=== PATIENT | female | born 1960 | race Caucasian/White ===

== ENCOUNTER 2016-08-28 20:11 | Inpatient (IN) | payer MEDICAID ==
--- NOTE | 2016-08-29 00:17 | ED PDOC ---
Arrival/HPI <Fransisco Silver - Last Filed: 08/29/16 01:14> - General Historian: Patient <Hermelinda Prince - Last Filed: 08/29/16 03:43> - General Time Seen by Provider: 08/28/16 23:48 - History of Present Illness Narrative History of Present Illness (Text): 08/29/16 00:14 55yo female IVDU present with complaint of left hand swelling/pain x 3days. states symptoms started after injecting herself with heroine. Denies fever, chills, nausea,vomiting, any other complaint. 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 - Anesthesia Hx Anesthesia: Yes Hx Anesthesia Reactions: No Hx Malignant Hyperthermia: No - Suicidal Assessment Feels Threatened In Home Enviroment: No <Hermelinda Prince - Last Filed: 08/29/16 03:43> Family/Social History - Physician Review Nursing Documentation Reviewed: Yes Family/Social History: Unknown Family HX Smoking Status: Heavy Smoker > 10 Cigarettes Daily Hx Alcohol Use: No Hx Substance Use: Yes Substance used: heroin, cocaine, oxycodone Hx Substance Use Treatment: No <Hermelinda Prince - Last Filed: 08/29/16 03:43> Allergies/Home Meds <Fransisco Silver - Last Filed: 08/29/16 01:14> <Hermelinda Prince A - Last Filed: 08/29/16 03:43> Allergies/Adverse Reactions: Allergies No Known Allergies Allergy (Verified 12/24/14 16:22) Home Medications: Home Meds Medication Instructions Recorded Confirmed oxyCODONE [oxyCODONE Immediate 30 mg PO DAILY 11/05/15 11/05/15 Release Tab] Review of Systems - Physician Review All systems were reviewed & negative as marked: Yes - Review of Systems Constitutional: Normal Eyes: Normal ENT: Normal Respiratory: Normal Cardiovascular: Normal Gastrointestinal: Normal Genitourinary Female: Normal Musculoskeletal: Normal Skin: Cellulitis (Left hand) Neurological: Normal Endocrine: Normal Hemo/Lymphatic: Normal Psychiatric: Normal <Hermelinda Prince A - Last Filed: 08/29/16 03:43> Physical Exam Vital Signs Reviewed: Yes Temperature: Afebrile Blood Pressure: Normal Pulse: Regular Respiratory Rate: Normal Appearance: Positive for: Well-Appearing, Non-Toxic, Comfortable Pain Distress: None Mental Status: Positive for: Alert and Oriented X 3 - Systems Exam Head: Present: Atraumatic, Normocephalic Pupils: Present: PERRL Extroacular Muscles: Present: EOMI Conjunctiva: Present: Normal Mouth: Present: Moist Mucous Membranes Neck: Present: Normal Range of Motion Respiratory/Chest: Present: Clear to Auscultation, Good Air Exchange. No: Respiratory Distress, Accessory Muscle Use Cardiovascular: Present: Regular Rate and Rhythm, Normal S1, S2. No: Murmurs Abdomen: Present: Normal Bowel Sounds. No: Tenderness, Distention, Peritoneal Signs Back: Present: Normal Inspection Upper Extremity: Present: Normal Inspection. No: Cyanosis, Edema Lower Extremity: Present: Normal Inspection. No: Edema Neurological: Present: GCS=15, CN II-XII Intact, Speech Normal Skin: Present: Warm, Dry, Normal Color, Erythematous (LEft volar hand), Other ( Promiennt swelling, tenderness and warmth to touch of left volar hand). No: Rashes Psychiatric: Present: Alert, Oriented x 3, Normal Insight, Normal Concentration <NikiHappiness A - Last Filed: 08/29/16 03:43> Vital Signs Temp Pulse Resp BP Pulse Ox 08/29/16 01:13 98.3 F 62 16 102/66 95 Medical Decision Making <Fransisco Silver - Last Filed: 08/29/16 01:14> <Hermelinda Prince A - Last Filed: 08/29/16 03:43> ED Course and Treatment: 08/29/16 03:41 PT is IVDU present with left hand cellulitis. She was admitted for IV abx. IV abx was started in ED EKG Sinus rhythm with short WA. No ST changes @ 60bpm as read by me CXR NAD Case was DW Dr. [place]. He accepted pt into his service. (Hermelinda Prince) - Medication Orders Current Medication Orders: Discontinued Medications Ceftriaxone Sodium (Rocephin 1 Gram Ivpb) 100 mls @ 200 mls/hr IVPB STAT STA PRN Reason: Protocol Stop: 08/29/16 01:11 Last Admin: 08/29/16 01:37 Dose: 200 MLS/HR eMAR Start Stop Document 08/29/16 01:37 FJA (Rec: 08/29/16 01:38 FJA [id number]) Intravenous Solution Start Date 08/29/16 Start Time 01:37 End Date 08/29/16 End time 02:07 Total Infusion Time 30 Vancomycin HCl (Vancomycin 1gm) 250 mls @ 167 mls/hr IVPB STAT STA PRN Reason: Protocol Stop: 08/29/16 02:11 Last Admin: 08/29/16 02:55 Dose: 167 MLS/HR eMAR Start Stop Document 08/29/16 02:55 STOCP (Rec: 08/29/16 02:55 STOCP [id number]) Intravenous Solution Start Date 08/29/16 Start Time 02:55 End Date 08/29/16 End time 04:25 Total Infusion Time 90 - PA / FACTORY CLERK / Resident Statement / has reviewed & agrees with the documentation as recorded. / has examined the patient and agrees with the treatment plan. <Fransisco Silver - Last Filed: 08/29/16 01:14> Disposition/Present on Arrival <Fransisco Silver - Last Filed: 08/29/16 01:14> - Present on Arrival Any Indicators Present on Arrival: No History of DVT/PE: No History of Uncontrolled Diabetes: No Urinary Catheter: No History Surgical Site Infection Following: None - Disposition Have Diagnosis and Disposition been Completed?: Yes Disposition Time: 22:30 <Hermelinda Prince - Last Filed: 08/29/16 03:43> - Disposition Diagnosis: Cellulitis, Drug abuse Disposition: HOSPITALIZED Patient Problems: Current Active Problems Problem Status Diagnosed Cellulitis Acute Condition: FAIR
[2016-08-29] MEDS ORDERED: Vancomycin 1gm in NS 250ml 250 ML IVPB STA (00:42)
[2016-08-29] MEDS ORDERED: cefTRIAXone 1 gm 100 ML IVPB STA (00:42)
[2016-08-29 00:55] LABS: ADD MANUAL DIFF? NO
[2016-08-29 00:58] LABS: EOS # 0.1 (0.0-0.7); EOS % 1.4 % (1.5-5.0); GRAN % 57.9 % (50.0-68.0); HEMATOCRIT 43.3 % (36.0-48.0); LYMPH # 2.1 (1.2-3.4); LYMPH % 32.2 % (22.0-35.0); MEAN CELL VOLUME 90.8 fL (80.0-105.0); MEAN CORPUSCULAR HEMOGLOBIN 30.4 pg (25.0-35.0); MEAN CORPUSCULAR HGB CONC 33.5 g/dl (31.0-37.0); MEAN PLATELET VOLUME 10.4 fl (7.0-11.0); MONO # 0.6 (0.1-0.6); MONO % 8.5 % (1.0-6.0); PLATELET COUNT 180 10^3/uL (120.0-450.0); RED CELL DISTRIBUTION WIDTH 13.9 % (11.5-14.5); WHITE BLOOD COUNT 6.6 10^3/ul (4.5-11.0)
[2016-08-29 01:23] LABS: ALB/GLOB RATIO 0.9 (1.1-1.8); ALKALINE PHOSPHATASE 84 U/L (38-133); ALT/SGPT 15 U/L (7-56); AST/SGOT 34 U/L (15-39); BILIRUBIN,TOTAL 0.7 mg/dL (0.2-1.3); BLOOD UREA NITROGEN 8 mg/dL (7-21); CALCIUM 9.4 mg/dL (8.4-10.5); CARBON DIOXIDE 25 mmol/L (21-33); CHLORIDE 105 mmol/L (98-107); GFR AFRICAN-AMERICAN > 60; GLUCOSE,RANDOM 95 mg/dL (70-110); POTASSIUM 4.4 mmol/L (3.6-5.0); SODIUM 141 mmol/L (132-148); TOTAL PROTEIN 8.8 g/dL (5.8-8.3)
[2016-08-29] MEDS: oxyCODONE 30 mg Immediate Release Tab PO SCH ×3 (10:13→17:27)
[2016-08-29] MEDS: cefTRIAXone 1 gm 100 ML IVPB SCH (10:13)
--- NOTE | 2016-08-29 11:15 | RAD ---
HISTORY: admission COMPARISON: No prior. FINDINGS: LUNGS: Mild hyperinflation of the lungs. PLEURA: Blunting of the costophrenic angle which could be due to pleural thickening. Otherwise no evidence of significant pleural effusion or pneumothorax. CARDIOVASCULAR: Normal. OSSEOUS STRUCTURES: No significant abnormalities. VISUALIZED UPPER ABDOMEN: Normal. OTHER FINDINGS: None. IMPRESSION: Baseline portable study. Hyperinflation of the lungs suspicious for COPD/ emphysema.
[2016-08-29] MEDS: Vancomycin 1gm in NS 250ml 250 ML IVPB SCH (17:15)
--- NOTE | 2016-08-29 18:06 | CARD ---
APPROVED REPORT EKG Measurement Heart [id number] <Conclusion> Sinus rhythm with short NH Otherwise normal ECG
[2016-08-30] MEDS: Vancomycin 1gm in NS 250ml 250 ML IVPB SCH ×2 (04:07→17:58)
[2016-08-30 06:44] LABS: ADD MANUAL DIFF? NO
[2016-08-30 07:13] LABS: BASO # 0.01 K/mm3 (0.0-2.0); BASO % 0.2 % (0.0-3.0); BLOOD UREA NITROGEN 7 mg/dL (7-21); CALCIUM 8.9 mg/dL (8.4-10.5); CARBON DIOXIDE 25 mmol/L (21-33); CHLORIDE 109 mmol/L (98-107); EOS # 0.1 (0.0-0.7); EOS % 1.6 % (1.5-5.0); GFR AFRICAN-AMERICAN > 60; GLUCOSE,RANDOM 98 mg/dL (70-110); GRAN # 2.61 (1.4-6.5); GRAN % 45.2 % (50.0-68.0); LYMPH # 2.5 (1.2-3.4); LYMPH % 43.8 % (22.0-35.0); MEAN CELL VOLUME 89.9 fL (80.0-105.0); MEAN CORPUSCULAR HEMOGLOBIN 29.8 pg (25.0-35.0); MEAN CORPUSCULAR HGB CONC 33.1 g/dl (31.0-37.0); MEAN PLATELET VOLUME 10.6 fl (7.0-11.0); MONO # 0.5 (0.1-0.6); MONO % 9.2 % (1.0-6.0); PLATELET COUNT 168 10^3/uL (120.0-450.0); POTASSIUM 4.7 mmol/L (3.6-5.0); RED CELL DISTRIBUTION WIDTH 14.1 % (11.5-14.5); SODIUM 141 mmol/L (132-148); WHITE BLOOD COUNT 5.8 10^3/ul (4.5-11.0)
[2016-08-30 09:05] LABS: ERYTHROCYTE SEDIMENTATION RATE 26 mm/hr (0.0-20.0)
[2016-08-30] MEDS: cefTRIAXone 1 gm 100 ML IVPB SCH (09:45)
[2016-08-30] MEDS: oxyCODONE 30 mg Immediate Release Tab PO SCH ×3 (09:45→17:59)
--- NOTE | 2016-08-30 10:19 | HP ---
CHIEF COMPLAINT: Pain, swelling, heat in the left hand. HISTORY OF PRESENT ILLNESS: This is a 55-year-old woman I have known for many years with a history o f hepatitis C, cocaine use and chronic back pain who reports she was injecting illicit street drugs i nto her left hand and apparently missed the vein and developed a cellulitis of the hand. The patient says she has not used intravenous drugs in over 30 years and does not know what propelled her to do this. She says she does not use heroin and this was not her when she was injecting, but rather cocai ne to cause the cellulitis. PAST MEDICAL HISTORY: Negative for hypertension, diabetes, tuberculosis, asthma, seizures. Positive for rehab hospitalization for cocaine use approximately 2 years ago. She has severe arthritis of th e back with multiple level degenerative disease and disk herniations. She is in chronic pain and use s opiates for that chronic pain. She also has a history of hepatitis C. ALLERGIES: She has no known allergies. SOCIAL HISTORY: Continues to smoke. Does not drink alcohol. REVIEW OF SYSTEMS: Otherwise, unremarkable. PHYSICAL EXAMINATION: GENERAL: The patient was seen in room 564, bed 2, resting comfortably in bed, a bit anxious and unse ttled, nervous about her future medications and analgesics for back pain and a bit confused and remor seful about the action she has taken with intravenous drug use. HEAD AND NECK: Unremarkable. HEENT: Conjunctivae are pink. Mucous membranes are moist. NECK: Supple without masses. LUNGS: Show good aeration, right and left. HEART: Regular, nontachycardic. EXTREMITIES: Show no edema. Left hand is markedly swollen, erythematous, warm to touch. There is no streaking up the arm. There is no fluctuance or abscess palpable. She has already gotten a few dos es of Rocephin. IMPRESSION: 1. Cellulitis of the left hand from illicit drug use. 2. Illicit intravenous drug use. 3. History of cocaine use. 4. Opiate use. 5. Chronic back pain. 6. Hepatitis C. PLAN: I spoke with patient at length. We will use antibiotics. I will ask for an infectious diseas e consultation by Dr. Mike Hartman. I also spoke with social service assistant to arrange for outpatient ethadone clinic in the future, as she will no longer be able to take prescription opiates after this reported heroin related IV drug infection (although patient states it was not heroin, but cocaine she was trying to inject). Chito Kan MD cc: [id number] TT: 08/30/2016 10:18:55 radha
--- NOTE | 2016-08-30 17:13 | CP.PCM.CON ---
History of Present Illness - History of Present Illness History of Present Illness: 55 year old female with PMH of polysubstance abuse with IV use, S/P hysterectomy complained of a 3 day history of left hand swelling and pain. She states that she was using IV heroin prior to this. She denies animal contacts, no fever or chills, no nausea or vomiting, no chest pain, no SOB, no cough or colds, no headache or dizziness, no diarrhea, no dysuria, no vaginal discharge, no blurring of vision, no dysphagia. Infectious Diseases consult is requested to further evaluate and manage. Currently the patient is feeling better with decreased swelling and pain in the hand. Review of Systems - Review of Systems All systems: reviewed and no additional remarkable complaints except (as per HPI ) Past Patient History - Infectious Disease Hx of Infectious Diseases: None - Tetanus Immunizations Tetanus Immunization: Unknown - Past Medical History & Family History Past Medical History?: Yes - Past Social History Smoking Status: Heavy Smoker > 10 Cigarettes Daily Alcohol: Occasional Drugs: Other (polysubstance abuse) Home Situation {Lives}: With Family - CARDIAC Hx Cardiac Disorders: No - PULMONARY Hx Respiratory Disorders: No - NEUROLOGICAL Hx Neurological Disorder: No - HEENT Hx HEENT Problems: No - RENAL Hx Chronic Kidney Disease: No - ENDOCRINE/METABOLIC Hx Endocrine Disorders: No - HEMATOLOGICAL/ONCOLOGICAL Hx Blood Disorders: No - INTEGUMENTARY Hx Dermatological Problems: No - MUSCULOSKELETAL/RHEUMATOLOGICAL Hx Falls: No - GASTROINTESTINAL Hx Gastrointestinal Disorders: No - GENITOURINARY/GYNECOLOGICAL Hx Genitourinary Disorders: No - PSYCHIATRIC Hx Substance Use: Yes (HEROINE, COCAINE, OXYCODONE) - SURGICAL HISTORY Hx Surgeries: Yes Hx Hysterectomy: Yes Other/Comment: 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 - ANESTHESIA Hx Anesthesia: Yes Hx Anesthesia Reactions: No Hx Malignant Hyperthermia: No Meds Allergies/Adverse Reactions: Allergies Allergy/AdvReac Type Severity Reaction Status Date / Time No Known Allergies Allergy Verified 12/24/14 16:22 - Medications Medications: Current Medications Cyclobenzaprine HCl (Flexeril) 5 mg PO TID [facility] Last Admin: 08/29/16 14:37 Dose: 5 mg Gabapentin (Neurontin) 300 mg PO TID [facility] PRN Reason: Protocol Last Admin: 08/29/16 14:37 Dose: 300 mg Ceftriaxone Sodium (Rocephin 1 Gram Ivpb) 100 mls @ 100 mls/hr IVPB DAILY [facility] PRN Reason: Protocol Last Admin: 08/29/16 10:13 Dose: 100 mls/hr Oxycodone HCl (Oxycodone Immediate Release Tab) 30 mg PO TID [facility] Last Admin: 08/29/16 14:36 Dose: 30 mg Trazodone HCl (Desyrel) 50 mg PO HS [facility] Physical Exam - Constitutional Appears: Non-toxic, No Acute Distress - Head Exam Head Exam: NORMAL INSPECTION - ENT Exam ENT Exam: Mucous Membranes Moist - Neck Exam Neck exam: Negative for: Lymphadenopathy, Meningismus - Respiratory Exam Respiratory Exam: Decreased Breath Sounds. absent: Rales - Cardiovascular Exam Cardiovascular Exam: +S1, +S2 - GI/Abdominal Exam GI & Abdominal Exam: Soft. absent: Tenderness - Extremities Exam Additional comments: left hand with decreased erythema, swelling and decreased tenderness; no fluctuance noted Results - Vital Signs Recent Vital Signs: Last Vital Signs Temp 98.1 F 08/29/16 16:29 Pulse 62 08/29/16 16:29 Resp 18 08/29/16 16:29 BP 99/59 L 08/29/16 16:29 Pulse Ox 96 08/29/16 16:29 - Labs Result Diagrams: 08/30/16 06:30 08/30/16 06:30 Labs: Laboratory Results - last 24 hr 08/29/16 00:45 WBC 6.6 RBC 4.77 Hgb 14.5 Hct 43.3 MCV 90.8 MCH 30.4 MCHC 33.5 RDW 13.9 Plt Count 180 MPV 10.4 Gran % 57.9 Lymph % (Auto) 32.2 Gaston % (Auto) 8.5 H Eos % (Auto) 1.4 L Baso % (Auto) 0.0 Gran # 3.80 Lymph # 2.1 Gaston # 0.6 Eos # 0.1 Baso # 0.00 Sodium 141 Potassium 4.4 Chloride 105 Carbon Dioxide 25 Anion Gap 15 BUN 8 Creatinine 0.9 Est GFR ( Amer) > 60 Est GFR (Non-Af Amer) > 60 Random Glucose 95 Calcium 9.4 Total Bilirubin 0.7 AST 34 ALT 15 Alkaline Phosphatase 84 Total Protein 8.8 H Albumin 4.2 Globulin 4.6 Albumin/Globulin Ratio 0.9 L Assessment & Plan - Assessment and Plan (Free Text) Plan: Assessment Left hand non-purulent skin and skin structure infection, clinically improving positive hepatitis C antibody polysubstance abuse with IV use S/P hysterectomy Plan Continue Vancomycin and Rocephin (day 2); blood cx are negative x 24 hours Follow up HCV PCR and genotype Follow up HIV test will monitor clinically
--- NOTE | 2016-08-30 19:17 | PN ---
DATE: 08/30/2016 The patient is a 55-year-old female admitted to [facility] yesterday with a diagnosis of cellulitis of the left hand. This had developed after using illicit intravenous drugs. The patient has a positive medical history for drug rehab several years ago. She has arthritis of th e back with degenerative disk disease and disk herniations. She also has a history of hepatitis C. She has no known medical allergies. She was seen by Dr. Whittaker, infectious disease vocational rehab consultant. Since her hospitalization she is being huey ated with vancomycin and Rocephin. Her white blood cell counts this morning are normal. Serum chemistries are unremarkable. Her vital signs are stable. When seen, she is awake, alert, and oriented. LUNGS: Clear. HEART: Regular. There is a decreasing cellulitis of the left hand with puncture reyez on the dorsum of the hand. Blood cultures have been negative x 2. The patient tested positive for hepatitis C. The patient is clinically improved. White blood cell count is normal. She is afebrile. We will com plete today's intravenous antibiotics in the hopes that with reevaluation tomorrow she can changed to oral antibiotics and discharged to home. FINAL DIAGNOSES: 1. Cellulitis, left hand. 2. Intravenous drug use. History of cocaine use, chronic opiate use. 3. Hepatitis. 4. Chronic back pain. Loco Kan MD cc: [id number] TT: 08/30/2016 19:16:40 Confirmation # [id number] Dictation # [id number] jamilah
[2016-08-31] MEDS: Vancomycin 1gm in NS 250ml 250 ML IVPB SCH (06:01)
[2016-08-31 08:45] VITALS: BP 120/76; PULSE 72; RESP 20; TEMP 97.8; O2SAT 95
[2016-08-31] MEDS: cefTRIAXone 1 gm 100 ML IVPB SCH (09:13)
[2016-08-31] MEDS: oxyCODONE 30 mg Immediate Release Tab PO SCH (09:14)
--- NOTE | 2016-08-31 12:30 | CP.PCM.PN ---
Subjective - Date & Time of Evaluation Date of Evaluation: 08/31/16 Time of Evaluation: 10:55 - Subjective Subjective: Comfortable, much improved swelling and pain of her left hand, no fevers overnight. Objective - Vital Signs/Intake and Output Vital Signs (last 24 hours): Temp Pulse Resp BP Pulse Ox 97.8 F 72 20 120/76 95 08/31/16 08:00 08/31/16 08:00 08/31/16 08:00 08/31/16 08:00 08/31/16 08:00 Intake and Output: 08/31/16 08/31/16 06:59 18:59 Intake Total 720 Balance 720 - Medications Medications: Current Medications Cyclobenzaprine HCl (Flexeril) 5 mg PO TID [facility] Last Admin: 08/31/16 09:14 Dose: 5 mg Gabapentin (Neurontin) 300 mg PO TID [facility] PRN Reason: Protocol Last Admin: 08/31/16 09:13 Dose: 300 mg Ceftriaxone Sodium (Rocephin 1 Gram Ivpb) 100 mls @ 100 mls/hr IVPB DAILY [facility] PRN Reason: Protocol Last Admin: 08/31/16 09:13 Dose: 100 mls/hr Vancomycin HCl (Vancomycin 1gm) 250 mls @ 167 mls/hr IVPB Q12H [facility] PRN Reason: Protocol Stop: 09/05/16 17:01 Last Admin: 08/31/16 06:01 Dose: 167 mls/hr Oxycodone HCl (Oxycodone Immediate Release Tab) 30 mg PO TID [facility] Last Admin: 08/31/16 09:14 Dose: 30 mg Trazodone HCl (Desyrel) 50 mg PO [facility] Last Admin: 08/30/16 21:50 Dose: 50 mg - Labs Labs: 08/30/16 06:30 08/30/16 06:30 - Constitutional Appears: Non-toxic, No Acute Distress - Head Exam Head Exam: NORMAL INSPECTION - ENT Exam ENT Exam: Mucous Membranes Moist - Neck Exam Neck Exam: absent: Lymphadenopathy, Meningismus - Respiratory Exam Respiratory Exam: Decreased Breath Sounds - Cardiovascular Exam Cardiovascular Exam: +S1, +S2 - GI/Abdominal Exam GI & Abdominal Exam: Soft. absent: Tenderness - Extremities Exam Additional comments: left hand swelling is much improved, much decreased erythema and no more tenderness on palpation Assessment and Plan - Assessment and Plan (Free Text) Plan: Assessment Left hand non-purulent skin and skin structure infection, clinically much improved positive hepatitis C antibody polysubstance abuse with IV use S/P hysterectomy Plan on Vancomycin and Rocephin (day 3); blood cx are negative; can be switched to PO Doxycycline and Augmentin for another 3-5 days Follow up HCV PCR and genotype as an outpatient - discussed with patient she should see a Hepatitis C specialist as an outpatient Follow up HIV test as an outpatient as well
--- NOTE | 2016-09-01 22:15 | DS ---
This is a 55-year-old woman I have known for many years, with a history of chronic severe low back pa in with diffuse degenerative disease and arthritis of the lumbar spine as well as cervical spine. Ángel he also has a history of hepatitis B, chronic opiate use, for analgesia control, and a history of coca ine use, for which she most recently went through a rehabilitation program approximately 2 years ago. The patient came to the acute care facility at [facility] because of swelling in the left hand, noted a few days after an attempt at the intravenous injection of the street drug. Init rajlly was thought to be heroin that the patient injected, but she insists that her drug of use has al ways been cocaine and that she was injecting cocaine when the cellulitis began. They admitted her to a med/surg floor. She was treated with IV antibiotics, first Rocephin and then vancomycin was added. She was seen by infectious disease software developer consultant. Her white count was initially slightly elevated then came down to normal. She was afebrile, received 3 days of IV antibiotics, con verted to p.o. and ready for discharge to home, on 07/03/2016. FINAL DISCHARGE DIAGNOSES: 1. Cellulitis of the left hand. 2. Hepatitis C. 3. Chronic opiate use. 4. Cocaine abuse. 5. Hepatitis C. 6. Severe arthritis of the lumbar spine with degenerative disk disease. 7. Chronic back pain Cihto Kan MD cc: [id number] TT: 09/01/2016 22:14:27 ln
== END 2016-08-31 12:23 | disposition home or self-care (01) | DRG 277 ==
LOC: ED 20:11 → ERH 08-29 00:42 → 5RNO 08-29 02:45
PROVIDERS: ADMIT Internal Medicine; ATTEND Internal Medicine
DX: L03.114 Cellulitis of left upper limb (principal); F19.10 Other psychoactive substance abuse, uncomplicated; B19.20 Unspecified viral hepatitis C without hepatic coma; G89.29 Other chronic pain; M54.9 Dorsalgia, unspecified; M46.90 Unspecified inflammatory spondylopathy, site unspecified; F17.210 Nicotine dependence, cigarettes, uncomplicated; Z90.710 Acquired absence of both cervix and uterus